=== PATIENT | male | born 1960 | race Caucasian/White ===

== ENCOUNTER 2019-05-18 19:29 | Inpatient (IN) | payer OTHER, MEDICAID ==
[~2019-05-18] VITALS: Ht 162.6 cm; Wt 65.8 kg
[2019-05-18] MEDS ORDERED: SODIUM CHLORIDE 0.9% 1,000 ML IVB ONE (20:47)
[2019-05-18 20:57] LABS: Basophils # (auto) 0.1 uL; Basophils % (auto) 0.4 % (0.0-2.0); Eosinophils # (auto) 0 uL; Eosinophils % (auto) 0.2 % (0.0-7.0); Hematocrit 43.7 % (41.0-53.0); Hemoglobin 14.8 g/dL (13.5-17.5); Lymphocytes # (auto) 1.1 uL; Lymphocytes % (auto) 5.8 % (10.0-50.0); Mean Corpuscular Hemoglobin 32.8 pg (28.0-32.0); Mean Corpuscular Hgb Conc. 33.8 g/dL (32.0-36.0); Mean Corpuscular Volume 96.9 fL (80.0-100.0); Monocytes # (auto) 1.2 uL; Monocytes % (auto) 6.2 % (0.0-12.0); Neutrophils # (auto) 16.7 uL; Neutrophils % (auto) 87.4 % (37.0-80.0); Platelet Count (auto) 224 10^3/uL (140-450); Red Blood Cells 4.51 10^6/uL (4.5-5.90); Red Cell Distribution Width 13.6 % (11.8-14.3); White Blood Cell 19.1 10^3/uL (4.4-10.8)
[2019-05-18] MEDS ORDERED: TETANUS-DIPTH-ACEL PERTUSSIS 0.5ML SYRG IM ONE (21:00)
[2019-05-18 21:06] LABS: Alanine Aminotransferase 19 U/L (16-61); Albumin 3.5 g/dL (3.4-5.0); Anion Gap 9 (5-15); Aspartate Aminotransferase 21 U/L (15-37); Blood Urea Nitrogen 17 mg/dL (7-18); Calcium 8.3 mg/dL (8.5-10.1); Carbon Dioxide 25 mmol/L (21-32); Chloride 105 mmol/L (98-107); Glucose 97 mg/dL (74-106); Potassium 3.7 mmol/L (3.5-5.1); Sodium 139 mmol/L (136-145)
[2019-05-18 21:11] LABS: Alkaline Phosphatase 66 U/L (45-117); BUN/Creatinine Ratio 20.7; Bilirubin, Total 0.5 mg/dL (0.2-1.0); GFR African American 125 mL/min; GFR Non-African American 103 mL/min; Total Protein 7.3 g/dL (6.4-8.2)
[2019-05-18 21:25] LABS: Urine Bacteria NONE SEEN /hpf (None Seen); Urine Blood Negative /uL (Negative); Urine Hyaline Cast FEW /lpf (0 - 2); Urine Mucus FEW (None Seen); Urine Specific Gravity 1.026 (1.001-1.035); Urine WBC <1 /hpf (0 - 3)
[2019-05-18 21:36] LABS: INR < 0.93 (0.9-1.15); Partial Thromboplastin Time 25.3 sec (23.64-32.05)
[2019-05-18 21:46] LABS: Alcohol, Urine < 3.0 mg/dL (0-5); Amphetamine Screen, Urine NEGATIVE (NEGATIVE); Barbiturate Scree,Urine NEGATIVE (NEGATIVE); Benzodiazephine Screen, Urine NEGATIVE (NEGATIVE); Cannabinoid Screen, Urine POSITIVE (NEGATIVE); Cocaine Screen, Urine NEGATIVE (NEGATIVE); Opiate Scree,Urine NEGATIVE (NEGATIVE); Phencyclidine Screen, Urine NEGATIVE (NEGATIVE)
[2019-05-19] MEDS ORDERED: CITALOPRAM HYDROBR 20 MG TAB PO ONE (01:45)
[2019-05-19] MEDS ORDERED: ACETAMINOPHEN 325 MG TAB PO PRN (03:30)
[2019-05-19] MEDS ORDERED: ONDANSETRON HCL 4 MG/2 ML VIAL IV PRN (03:30)
[2019-05-19] MEDS ORDERED: ACETAMINOPHEN 500 MG TAB PO PRN (03:30)
[2019-05-19] MEDS ORDERED: SODIUM CHLORIDE 0.9% 1,000 ML IV ONE (04:00)
[2019-05-19] MEDS ORDERED: cefTRIAXone 1GM/50ML D5W 50 ML IV ONE (05:00)
[2019-05-19] MEDS ORDERED: GABA300C10 PO ×2 (05:55→12:53)
[2019-05-19] MEDS ORDERED: CITA10TA59 PO (05:55)
[2019-05-19 05:56] VITALS: BP 116/67
[2019-05-19 06:00] VITALS: BP 116/67
[2019-05-19] MEDS ORDERED: PANTOPRAZOLE 40 MG TAB PO SCH (06:00)
--- NOTE | 2019-05-19 08:00 | NUR ---
Opening Shift Note Assumed care of patient, awake and alert, in restroom upon rounds. No S/S of distress. Will continue to monitor for changes Q1hr and PRN.
[2019-05-19 08:21] VITALS: BP 101/60
--- NOTE | 2019-05-19 08:50 | NUR ---
ROUNDS Patient and pt's updated on plan of care.
[2019-05-19 09:09] LABS: Basophils # (auto) 0.1 uL; Basophils % (auto) 1.2 % (0.0-2.0); Eosinophils # (auto) 0.1 uL; Eosinophils % (auto) 1.6 % (0.0-7.0); Hematocrit 40.9 % (41.0-53.0); Hemoglobin 14.2 g/dL (13.5-17.5); Lymphocytes # (auto) 2.2 uL; Lymphocytes % (auto) 25.6 % (10.0-50.0); Mean Corpuscular Hemoglobin 33.7 pg (28.0-32.0); Mean Corpuscular Hgb Conc. 34.8 g/dL (32.0-36.0); Mean Corpuscular Volume 96.9 fL (80.0-100.0); Monocytes # (auto) 0.7 uL; Monocytes % (auto) 7.9 % (0.0-12.0); Neutrophils # (auto) 5.4 uL; Neutrophils % (auto) 63.7 % (37.0-80.0); Nucleated Red Blood Cells % 0.1 %; Platelet Count (auto) 211 10^3/uL (140-450); Red Blood Cells 4.22 10^6/uL (4.5-5.90); Red Cell Distribution Width 13.8 % (11.8-14.3); White Blood Cell 8.5 10^3/uL (4.4-10.8)
[2019-05-19 09:24] LABS: BUN/Creatinine Ratio 17.7; Calcium 8.6 mg/dL (8.5-10.1); Potassium 4.3 mmol/L (3.5-5.1)
[2019-05-19] MEDS ORDERED: GABA400C11 PO (09:45)
[2019-05-19] MEDS ORDERED: CITALOPRAM HYDROBR 20 MG TAB PO SCH ×2 (10:00→22:00)
--- NOTE | 2019-05-19 12:00 | NUR ---
ROUNDING Dr Tong Andrews rounding on patient. Plan of care discussed with patient.
[2019-05-19 12:45] VITALS: BP 96/56
--- NOTE | 2019-05-19 12:57 | NUR ---
TELEPHONE ORDERS Verified home dose of medications. T/O read back and noted.
[2019-05-19] MEDS ORDERED: GABAPENTIN 300 MG CAP PO SCH (13:00)
[2019-05-19 17:00] VITALS: BP 146/77
--- NOTE | 2019-05-19 18:06 | NUR ---
CARDIO Dr Aranda rounded on patient for cardio consult. Patient cleared for discharge.
--- NOTE | 2019-05-19 19:00 | NUR ---
Discharge instructions given as ordered. Encourage to follow up with PMD as instructed. All questions and concerns addressed. Patient verbalized understanding. Medication reconciliation form completed and copy given to patient. IV removed with catheter intact, pressure dressing applied. Telemetry unit returned to ICU. Patient ambulated off unit with all personal belongings. No distress noted at time of departure.
[2019-05-20] MEDS ORDERED: cefTRIAXone 1GM/50ML D5W 50 ML IV SCH (06:00)
== END 2019-05-19 19:00 | disposition home or self-care (01) | DRG 605 ==
LOC: ER 19:29 → EDBD 19:29 → TELE 19:30 → TELE-WESTW 05-19 05:27
PROVIDERS: ADMIT Nurse Practitioner Family; ATTEND Hospitalist
DX: S61.012A Laceration without foreign body of left thumb without damage to nail, initial encounter (principal); R55 Syncope and collapse; D72.829 Elevated white blood cell count, unspecified; F32.9 Major depressive disorder, single episode, unspecified; K21.9 Gastro-esophageal reflux disease without esophagitis; F41.9 Anxiety disorder, unspecified; F12.90 Cannabis use, unspecified, uncomplicated; F17.210 Nicotine dependence, cigarettes, uncomplicated; Z82.49 Family history of ischemic heart disease and other diseases of the circulatory system; W26.0XXA Contact with knife, initial encounter; Y93.89 Activity, other specified; Y92.090 Kitchen in other non-institutional residence as the place of occurrence of the external cause; Y99.8 Other external cause status; G62.9 Polyneuropathy, unspecified
CPT/HCPCS: 36415; 70450; 71045; 80048; 80053; 80307; 81001; 82962; 83605; 83735; 84484; 85025; 85610; 85730; 87040; 90715; 93005; 93306; 93886; G0378; J0696

== ENCOUNTER 2022-08-07 13:55 | Emergency (ER) | payer MEDICARE, MEDICAID ==
[~2022-08-07] VITALS: Ht 162.6 cm; Wt 64.0 kg
[~2022-08-07 13:55] MED LIST: CITA10TA8 PO; GABA300C10 PO
[2022-08-07 18:57] VITALS: BP 130/78
[2022-08-07] MEDS ORDERED: CEPH-510 PO (21:04)
== END 2022-08-07 21:18 | disposition home or self-care (01) ==
LOC: ER 13:55
DX: S61.412A Laceration without foreign body of left hand, initial encounter (principal); F17.210 Nicotine dependence, cigarettes, uncomplicated; W26.8XXA Contact with other sharp object(s), not elsewhere classified, initial encounter; Y93.89 Activity, other specified; Y92.89 Other specified places as the place of occurrence of the external cause; Y99.8 Other external cause status
CPT/HCPCS: 12004; 73130

== ENCOUNTER 2022-09-08 17:58 | Emergency (ER) | payer OTHER, MEDICAID ==
[~2022-09-08] VITALS: Ht 170.2 cm; Wt 68.0 kg
[~2022-09-08 17:58] MED LIST changes: +CEPH-510 PO
[2022-09-08] MEDS ORDERED: ACE3T PO (23:00)
[2022-09-08] MEDS ORDERED: MORPHINE SULFATE INJ 2 MG/ml SYRG IM ONE (23:00)
[2022-09-08] MEDS ORDERED: ONDANSETRON ODT 4 MG TAB PO ONE (23:00)
[2022-09-09 00:35] VITALS: BP 118/82
== END 2022-09-09 00:35 | disposition home or self-care (01) ==
LOC: EDBD 17:58 → ER 18:01
DX: G89.29 Other chronic pain (principal); M54.50 Low back pain, unspecified; F17.210 Nicotine dependence, cigarettes, uncomplicated; Z79.899 Other long term (current) drug therapy
CPT/HCPCS: 72131; 96372; 99284; J2270; Q0162

== ENCOUNTER 2022-09-16 21:19 | Inpatient (IN) | payer MEDICAID, OTHER ==
[~2022-09-16] VITALS: Ht 162.6 cm; Wt 72.5 kg
[~2022-09-16 21:19] MED LIST changes: +ACE3T PO
[2022-09-16] MEDS ORDERED: SODIUM CHLORIDE 0.9% 1,000 ML IV ONE (22:30)
[2022-09-16] MEDS ORDERED: HYDROmorphone HCL 2 MG/ML VL/or syr IV ONE (22:30)
[2022-09-16] MEDS ORDERED: ONDANSETRON HCL 4 MG/2 ML VIAL IV ONE (22:30)
[2022-09-16 22:58] LABS: Basophils # (auto) 0.1 10 ^3/uL (0-0.2); Basophils % (auto) 0.3 % (0.0-2.0); Eosinophils # (auto) 0.1 10 ^3/uL (0-0.8); Eosinophils % (auto) 0.5 % (0.0-7.0); Hematocrit 44.2 % (41.0-53.0); Hemoglobin 15.5 g/dL (13.5-17.5); Lymphocytes # (auto) 2.7 10 ^3/uL (0.4-5.4); Lymphocytes % (auto) 12.6 % (10.0-50.0); Mean Corpuscular Hemoglobin 33.6 pg (28.0-32.0); Mean Corpuscular Hgb Conc. 35.1 g/dL (32.0-36.0); Mean Corpuscular Volume 95.7 fL (80.0-100.0); Monocytes # (auto) 1.2 10 ^3/uL (0-1.3); Monocytes % (auto) 5.7 % (0.0-12.0); Neutrophils # (auto) 17.2 10 ^3/uL (1.6-8.6); Neutrophils % (auto) 80.9 % (37.0-80.0); Nucleated Red Blood Cells % 0.1 %; Red Blood Cells 4.61 10^6/uL (4.5-5.90); Red Cell Distribution Width 13.5 % (11.8-14.3); White Blood Cell 21.3 10^3/uL (4.4-10.8)
[2022-09-16 23:16] LABS: Albumin 3.3 g/dL (3.4-5.0); Calcium 9.1 mg/dL (8.5-10.1); Potassium 4.5 mmol/L (3.5-5.1)
[2022-09-16 23:18] LABS: BUN/Creatinine Ratio 20.8; INR 0.94 (0.9-1.15); Partial Thromboplastin Time 29.3 sec (24.6-33.4)
[2022-09-16 23:21] LABS: Bilirubin, Total 0.3 mg/dL (0.2-1.0); Total Protein 6.8 g/dL (6.4-8.2)
[2022-09-17] MEDS ORDERED: PIPERACILLIN-TAZOB 3.375GM 100 ML IV ONE (01:15)
[2022-09-17] MEDS ORDERED: DOCUSATE SOD 100 MG CAP PO PRN (01:30)
[2022-09-17] MEDS ORDERED: TEMAZEPAM 15 MG CAP PO PRN (01:30)
[2022-09-17] MEDS ORDERED: ACETAMINOPHEN 325 MG TAB PO PRN (01:30)
[2022-09-17] MEDS ORDERED: MAALOX PLUS or MAALOX 30 ML PO PRN (01:30)
[2022-09-17] MEDS ORDERED: VANCOMYCIN PER PHARMACY 0 MG IV SCH (01:30)
[2022-09-17] MEDS: SODIUM CHLORIDE 0.9% 1,000 ML IV SCH ×2 (01:36→18:42)
[2022-09-17] MEDS ORDERED: VANCOMYCIN 1GM/250ML 250 ML IV ONE (02:00)
[2022-09-17 02:10] LABS: Urine Bacteria NONE SEEN /hpf (None Seen); Urine Blood Negative /uL (Negative); Urine WBC <1 /hpf (0 - 3)
[2022-09-17] MEDS: ONDANSETRON HCL 4 MG/2 ML VIAL IV PRN ×4 (05:56→20:09)
[2022-09-17] MEDS: HYDROmorphone HCL 2 MG/ML VL/or syr IV PRN ×4 (05:57→20:09)
[2022-09-17 06:53] LABS: Calcium 8.3 mg/dL (8.5-10.1); Potassium 4.3 mmol/L (3.5-5.1)
[2022-09-17 06:55] LABS: BUN/Creatinine Ratio 17.5
[2022-09-17 07:20] LABS: Basophils # (auto) 0.1 10 ^3/uL (0-0.2); Basophils % (auto) 0.5 % (0.0-2.0); Eosinophils # (auto) 0.1 10 ^3/uL (0-0.8); Hematocrit 41.1 % (41.0-53.0); Hemoglobin 14.2 g/dL (13.5-17.5); Lymphocytes # (auto) 2.5 10 ^3/uL (0.4-5.4); Mean Corpuscular Hemoglobin 33.5 pg (28.0-32.0); Mean Corpuscular Hgb Conc. 34.5 g/dL (32.0-36.0); Mean Corpuscular Volume 97.1 fL (80.0-100.0); Monocytes % (auto) 8.7 % (0.0-12.0); Neutrophils # (auto) 7.4 10 ^3/uL (1.6-8.6); Neutrophils % (auto) 66.8 % (37.0-80.0); Nucleated Red Blood Cells % 0.1 %; Red Blood Cells 4.23 10^6/uL (4.5-5.90); Red Cell Distribution Width 13.6 % (11.8-14.3); White Blood Cell 11.1 10^3/uL (4.4-10.8)
[2022-09-17] MEDS: PIPERACILLIN-TAZOB 3.375GM 100 ML IV SCH ×2 (10:19→18:46)
[2022-09-17] MEDS: VANCOMYCIN 1GM/250ML 250 ML IV SCH (17:32)
[2022-09-18] MEDS: ONDANSETRON HCL 4 MG/2 ML VIAL IV PRN ×6 (00:54→23:27)
[2022-09-18] MEDS: HYDROmorphone HCL 2 MG/ML VL/or syr IV PRN ×6 (00:55→23:27)
[2022-09-18] MEDS: PIPERACILLIN-TAZOB 3.375GM 100 ML IV SCH ×2 (02:23→12:34)
[2022-09-18] MEDS: LORazepam 0.5 MG TAB PO PRN ×2 (02:42→18:32)
[2022-09-18] MEDS: VANCOMYCIN 1GM/250ML 250 ML IV SCH (05:00)
[2022-09-18] MEDS: HYDROcodone-ACET 5/325MG TAB PO PRN ×2 (08:30→18:32)
[2022-09-18] MEDS ORDERED: KETOROLAC TROMETH 30 MG/ML 1ML VIAL IV ONE (10:00)
[2022-09-18] MEDS ORDERED: MORPHINE SULFATE INJ 2 MG/ml SYRG IV ONE (10:30)
[2022-09-18] MEDS: SODIUM CHLORIDE 0.9% 1,000 ML IV SCH (10:50)
[2022-09-18] MEDS ORDERED: methylPREDNISolone SOD SUCC 125 MG/2 ML VL IV ONE (12:45)
[2022-09-18 17:11] VITALS: BP 138/71
[2022-09-18] MEDS: methylPREDNISolone SOD SUCC 125 MG/2 ML VL IV SCH ×2 (18:28→23:28)
[2022-09-18 22:00] VITALS: BP 105/76
[2022-09-19] MEDS ORDERED: HYDR-4902 PO (04:04)
[2022-09-19 05:00] VITALS: BP 108/66
[2022-09-19] MEDS: methylPREDNISolone SOD SUCC 125 MG/2 ML VL IV SCH ×2 (05:12→12:08)
[2022-09-19] MEDS: SODIUM CHLORIDE 0.9% 1,000 ML IV SCH (05:13)
[2022-09-19] MEDS: HYDROmorphone HCL 2 MG/ML VL/or syr IV PRN (08:20)
[2022-09-19 09:00] VITALS: BP 101/65
[2022-09-19 12:40] VITALS: BP 114/60
[2022-09-19] MEDS ORDERED: PANT40TA2 PO (14:10)
[2022-09-19] MEDS ORDERED: PERCOT PO (14:10)
[2022-09-19 16:30] VITALS: BP 114/60
[2022-09-19 17:00] VITALS: BP 124/65
== END 2022-09-19 17:30 | disposition home or self-care (01) | DRG 552 ==
LOC: EDBD 21:19 → ER 21:19 → TELE 09-17 01:29 → TELE-EAST 09-18 16:40
PROVIDERS: ADMIT Hospitalist; ATTEND Internal Medicine
DX: M48.061 Spinal stenosis, lumbar region without neurogenic claudication (principal); M54.16 Radiculopathy, lumbar region; M54.50 Low back pain, unspecified; D72.829 Elevated white blood cell count, unspecified; G89.29 Other chronic pain; Z20.822 Contact with and (suspected) exposure to COVID-19; I10 Essential (primary) hypertension; G62.9 Polyneuropathy, unspecified; K59.00 Constipation, unspecified; K52.9 Noninfective gastroenteritis and colitis, unspecified; F17.210 Nicotine dependence, cigarettes, uncomplicated
CPT/HCPCS: 36415; 73562; 74176; 80048; 80053; 81001; 82565; 85025; 85610; 85730; 87040; 87426; 87804; 93306; 96361; 96365; 96366; 96375; G0378; J1885; J2405; J2543